=== PATIENT | female | born 1980 | race Caucasian/White ===

== ENCOUNTER 2025-10-06 17:43 | Emergency (ER) | payer BC ==
[~2025-10-06] VITALS: Ht 160 cm; Wt 73.0 kg
[2025-10-06 18:09] VITALS: TEMP 36.6; O2SAT 98
[2025-10-06] MEDS ORDERED: ACYC-58 MT (19:04)
[2025-10-06] MEDS ORDERED: BENZ11.92 MM (19:04)
[2025-10-06] MEDS ORDERED: IBUP-1455 MT (19:06)
[2025-10-06] MEDS: KETOROLAC 30MG/ML VIAL IM ONE (19:32)
[2025-10-06 19:46] VITALS: BP 142/69; PULSE 97; RESP 16; O2SAT 100
== END 2025-10-06 19:49 | disposition home or self-care (01) ==
LOC: ER 17:43
DX: B00.1 Herpesviral vesicular dermatitis (principal); K12.0 Recurrent oral aphthae
CPT/HCPCS: 99283; 96372; J1885